=== PATIENT | female | born 1965 | race Caucasian/White ===

== ENCOUNTER 2024-10-05 11:09 | Emergency (ER) | payer MEDICARE, OTHER ==
[~2024-10-05] VITALS: Ht 162.6 cm; Wt 73.5 kg
[~2024-10-05 11:09] MED LIST: DULOXETINE HCL30 MG PO; LAMOTRIGINE150 MG PO; LISINOPRIL10 MG PO; ONDANSETRON HCL4 MG PO; ONDANSETRON ODT4 MG PO; PROTONIX20 MG PO; ROSUVASTATIN CA20 MG PO
[2024-10-05 11:47] VITALS: BP 140/76
== END 2024-10-05 11:47 | disposition home or self-care (01) ==
LOC: ED 11:09
DX: R51.9 Headache, unspecified (principal); I10 Essential (primary) hypertension; E78.00 Pure hypercholesterolemia, unspecified; Z79.899 Other long term (current) drug therapy; Z88.1 Allergy status to other antibiotic agents; Z88.5 Allergy status to narcotic agent
CPT/HCPCS: 99283